=== PATIENT | female | born 1965 | race Caucasian/White ===

== ENCOUNTER 2017-04-08 18:07 | Emergency (ER) | payer SELFPAY ==
[~2017-04-08] VITALS: Ht 165.1 cm; Wt 87.4 kg
[2017-04-08] VITALS (7 sets, daily range): BP systolic 78–108; BP diastolic 50–63; PULSE 77–122; RESP 16–18; TEMP 99.8; O2SAT 94–97
[~2017-04-08 18:07] MED LIST: ADVI200T PO; ALBU8I INH; CIPR250T2 PO; PERC5TAB12 PO; TAMS0.4C67 PO; [UNRECOGNIZED DRUG - CODE] PO
[2017-04-08] MEDS ORDERED: RANI150T PO (18:34)
[2017-04-08] MEDS ORDERED: SODIUM CHLOR 0.9% 1000 ML INJ 1,000 ML IV ONE ×2 (19:30→21:30)
[2017-04-08] MEDS ORDERED: IBUPROFEN 800 MG TAB PO ONE (19:30)
[2017-04-08] MEDS ORDERED: ACETAMINOPHEN 325 MG TAB PO ONE (19:30)
--- NOTE | 2017-04-08 19:32 | PD ---
HPI . Sore throat Chief Complaint: ENT Complaint Time Seen by Provider: 19:27 Travel History International Travel<30 days: No Contact w/Intl Traveler<30days: No Traveled to known affect area: No History of Present Illness HPI This patient presents with flulike symptoms that started yesterday. She is complaining with headache, fevers and chills, sore throat and weakness. She states that she took some ibuprofen last night but has not taken anything today. No modifying factors. Symptoms have been persistent. PFSH Past Medical History Hx Anticoagulant Therapy: No COPD: Yes Diabetes: No Diminished Hearing: No GERD: Yes Immunizations Current: No Influenza Vaccination: No ?: Not Menopausal: Yes Past Surgical History Hysterectomy: Yes (TUBAL) Thoracic Surgery: Yes (right lung) Social History Alcohol Use: No Tobacco Use: No (quit in 1999) Substance Use: No Allergies-Medications (Allergen,Severity, Reaction): Coded Allergies: morphine (Unverified Allergy, Severe, VOMIT, 04/08/17) Reported Meds & Prescriptions Reported Meds & Active Scripts Active Reported Ranitidine (Ranitidine HCl) 150 Mg Tab 150 Mg PO DAILY Review of Systems Except as stated in HPI: all other systems reviewed are Neg General / Constitutional: Positive: Fever, Chills HENT: Positive: Sore Throat Gastrointestinal: Positive: Nausea, Vomiting Neurologic: Positive: Weakness Physical Exam Narrative GENERAL: Awake and alert. She acts like she feels poorly. SKIN: Warm and dry. Normal color and turgor. HEAD: Normocephalic/atraumatic. EYES: Pupils are equal. Extraocular movements are intact. ENT: Oropharynx has no erythema, tonsillar enlargement or exudate NECK: Normal range of motion. Supple. No cervical adenopathy. CARDIOVASCULAR: Sinus tachycardia. RESPIRATORY: Nonlabored respirations. Lungs are clear. MUSCULOSKELETAL: Atraumatic. NEUROLOGICAL: Nonfocal. PSYCHIATRIC: Appropriate mood and affect. Data Data Last Documented VS Vital Signs Date Time Temp Pulse Resp B/P (MAP) Pulse Ox O2 Delivery O2 Flow Rate FiO2 04/08/17 18:22 99.8 122 16 108/63 (78) 94 Orders Orders Sepsis Workup Initiated (04/08/17 ) Complete Blood Count With Diff (04/08/17 19:27) Comprehensive Metabolic Panel (04/08/17 19:27) Lactic Acid Sepsis Protocol (04/08/17 19:27) Blood Culture (04/08/17 19:27) Chest, Single Ap (04/08/17 19:) Ecg Monitoring (04/08/17:) Iv Access Insert/Monitor (04/08/17:) Oximetry (04/08/17:) Acetaminophen (Tylenol) (04/08/17 19:30) Ibuprofen (Motrin) (04/08/17 19:30) Sodium Chlor 0.9% 1000 Ml Inj (Ns 1000 M (04/08/17 19:30) Group A Rapid Strep Screen (04/08/17:) Influenzae A/B Antigen (04/08/17:) Penicillin G Benzathine Inj (Bicillin L- (04/08/17 21:00) Labs Laboratory Tests Test 04/08/17 20:10 White Blood Count 13.9 TH/MM3 Red Blood Count 4.61 MIL/MM3 Hemoglobin 12.9 GM/DL Hematocrit 39.0 % Mean Corpuscular Volume 84.6 FL Mean Corpuscular Hemoglobin 28.0 PG Mean Corpuscular Hemoglobin Concent 33.1 % Red Cell Distribution Width 13.9 % Platelet Count 174 TH/MM3 Mean Platelet Volume 8.4 FL Neutrophils (%) (Auto) 80.9 % Lymphocytes (%) (Auto) 8.5 % Monocytes (%) (Auto) 6.9 % Eosinophils (%) (Auto) 0.1 % Basophils (%) (Auto) 3.6 % Neutrophils # (Auto) 11.2 TH/MM3 Lymphocytes # (Auto) 1.2 TH/MM3 Monocytes # (Auto) 1.0 TH/MM3 Eosinophils # (Auto) 0.0 TH/MM3 Basophils # (Auto) 0.5 TH/MM3 CBC Comment DIFF FINAL Differential Comment Blood Urea Nitrogen 25 MG/DL Creatinine 1.00 MG/DL Random Glucose 108 MG/DL Total Protein 7.7 GM/DL Albumin 3.6 GM/DL Calcium Level 8.6 MG/DL Alkaline Phosphatase 78 U/L Aspartate Amino Transf (AST/SGOT) 19 U/L Alanine Aminotransferase (ALT/SGPT) 18 U/L Total Bilirubin 0.9 MG/DL Sodium Level 137 MEQ/L Potassium Level 3.5 MEQ/L Chloride Level 104 MEQ/L Carbon Dioxide Level 25.7 MEQ/L Anion Gap 7 MEQ/L Estimat Glomerular Filtration Rate 58 ML/MIN Lactic Acid Level 0.9 mmol/L MDM Medical Decision Making Medical Screen Exam Complete: Yes Emergency Medical Condition: Yes Differential Diagnosis Differential diagnosis of fever includes but is not limited to viral illness, strep throat, otitis media, pneumonia, sepsis, UTI Narrative Course This patient presents with typical flulike symptoms. She is tachycardic. I will give her fluids along with acetaminophen and ibuprofen. Septic workup including rapid flu and rapid strep screen is in progress. Last Impressions Chest X-Ray 04/08/171926 Signed Impressions: Service Date/Time: Saturday, April 08, 2017 19:52 - CONCLUSION: 1. Emphysema with lung barbara at the right lung apex. No effusion. Heart size upper limits normal. Ken Eddy MD The chest x-ray was independently viewed by me. CBC & BMP Diagram 04/08/17 20:10 Total Protein 7.7, Albumin 3.6, Calcium Level 8.6, Alkaline Phosphatase 78, Aspartate Amino Transf (AST/SGOT) 19, Alanine Aminotransferase (ALT/SGPT) 18, Total Bilirubin 0.9 LA 0.9 Flu screen negative. Strep screen positive. She will be treated with Bicillin LA 1.2 million units IM. She will then be discharged to home. Sepsis Criteria SIRS Criteria (2 or more): Heart rate over 90, WBC > 85006, < 4000 or > 10% bands Sepsis Criteria (SIRS+source): Infect source susp/known Criteria Outcome: Meets SIRS criteria, Meets sepsis criteria Diagnosis Primary Impression: Fever Qualified Codes: R50.9 - Fever, unspecified Additional Impressions: Strep throat Sepsis Qualified Codes: A40.0 - Sepsis due to Streptococcus, group A Patient Instructions: General Instructions, Strep Throat (DC) Disposition: DISCHARGE HOME Condition: Stable Yudith Gustafson MD Apr 08, 2017 19:32
--- NOTE | 2017-04-08 20:10 | RADRPT ---
EXAM DATE/TIME: 04/08/2017 19:52 [facility] COMPARISON: CHEST PA & LAT, March 20, 2013, 10:57. INDICATIONS : Cough. MEDICAL HISTORY : Gastroesophageal reflux disease. Chronic obstructive pulmonary disease SURGICAL HISTORY : Tubal ligation. Hysterectomy. ENCOUNTER: Initial ACUITY: 2 days PAIN SCORE: 2/10 LOCATION: Bilateral chest FINDINGS: There is underlying emphysema with lung barbara at the right lung apex. No consolidation or effusion. Heart size within normal limits. CONCLUSION: 1. Emphysema with lung barbara at the right lung apex. No effusion. Heart size upper limits normal. Ken Eddy MD on April 08, 2017 at 20:07 Board Certified Radiologist. This report was verified electronically.
[2017-04-08 20:27] LABS: AUTOMATED NEUTROPHIL # 11.2 TH/MM3 (1.8-7.7); BASOPHIL # 0.5 TH/MM3 (0-0.2); BASOPHIL % 3.6 % (0.0-2.0); EOSINOPHIL % 0.1 % (0.0-4.0); HEMOGLOBIN 12.9 GM/DL (11.6-15.3); LYMPH % 8.5 % (9.0-44.0); LYMPHOCYTE # 1.2 TH/MM3 (1.0-4.8); MEAN CELL VOLUME 84.6 FL (80.0-100.0); MEAN CORPUSCULAR HGB CONC 33.1 % (32.0-36.0); MEAN PLATELET VOLUME 8.4 FL (7.0-11.0); MONO % 6.9 % (0.0-8.0); NEUT % 80.9 % (16.0-70.0); PLATELET COUNT 174 TH/MM3 (150-450); RED BLOOD COUNT 4.61 MIL/MM3 (4.00-5.30); RED CELL DISTRIBUTION WIDTH 13.9 % (11.6-17.2); WHITE BLOOD COUNT 13.9 TH/MM3 (4.0-11.0)
[2017-04-08 20:37] LABS: CHLORIDE 104 MEQ/L (98-107); SODIUM (NA) 137 MEQ/L (136-145)
[2017-04-08 20:40] LABS: ALBUMIN 3.6 GM/DL (3.4-5.0); BICARBONATE 25.7 MEQ/L (21.0-32.0); BLOOD UREA NITROGEN 25 MG/DL (7-18); CALCIUM 8.6 MG/DL (8.5-10.1); GLUCOSE,RANDOM 108 MG/DL (74-106)
[2017-04-08 20:43] LABS: ALT (GPT) 18 U/L (10-53); AST (GOT) 19 U/L (15-37); GLOMERULAR FILTRATION RATE 58 ML/MIN (>89)
[2017-04-08 20:45] LABS: TOTAL BILIRUBIN ADULT 0.9 MG/DL (0.2-1.0); TOTAL PROTEIN 7.7 GM/DL (6.4-8.2)
[2017-04-08 20:46] LABS: ALKALINE PHOSPHATASE 78 U/L (45-117)
[2017-04-08] MEDS ORDERED: PENICILLIN G BENZATHINE 1,200,000 UNITS/2 ML SYRINGE IM ONE (21:00)
== END 2017-04-08 23:38 | disposition home or self-care (01) ==
LOC: PHED 18:07
DX: A40.0 Sepsis due to streptococcus, group A (principal); J02.0 Streptococcal pharyngitis; Z87.891 Personal history of nicotine dependence
CPT/HCPCS: 71045; 80053; 83605; 85025; 87040; 87804; 87880; 96360; 96361; 96372; 99284; J0561; J7030

== ENCOUNTER 2017-07-31 16:54 | Emergency (ER) | payer SELFPAY ==
[~2017-07-31] VITALS: Ht 165.1 cm; Wt 88.0 kg
[~2017-07-31 16:54] MED LIST changes: -ADVI200T PO; -ALBU8I INH; -CIPR250T2 PO; -PERC5TAB12 PO; +RANI150T PO; -TAMS0.4C67 PO; -[UNRECOGNIZED DRUG - CODE] PO
[2017-07-31 16:56] VITALS: BP 127/70; PULSE 85; RESP 16; TEMP 98.2; O2SAT 97
[2017-07-31 17:16] LABS: BILIRUBIN, URINE NEG (NEG); BLOOD, URINE LARGE (NEG); GLUCOSE,URINE NEG (NEG); KETONE, URINE NEG (NEG); NITRITE,URINE NEG (NEG); URINE COLOR YELLOW (YELLW/STRAW); URINE LEUKOCYTE ESTERASE TRACE (NEG)
[2017-07-31 17:34] LABS: RBC, URINE 100-200 /hpf (0-3)
--- NOTE | 2017-07-31 17:38 | PD ---
HPI Chief Complaint: Complaint Time Seen by Provider: 17:36 Travel History International Travel<30 days: No Contact w/Intl Traveler<30days: No Traveled to known affect area: No History of Present Illness HPI Patient comes [facility] complaining of asymptomatic hematuria that she first noticed today. Patient reports she first noticed after she voided initially and then started noticing on toilet paper when she wiped. Patient denies any vaginal discharge, abdominal pain, back pain, fevers, dysuria, or previous episodes like this. Patient denies being on a blood thinner. Denies anything making symptoms better or worse. Severity mild. PFSH Past Medical History Hx Anticoagulant Therapy: No COPD: Yes Diabetes: No Diminished Hearing: No GERD: Yes Immunizations Current: No ?: Not LMP: TL-MENOPAUSAL Menopausal: Yes Past Surgical History Hysterectomy: Yes (TUBAL) Thoracic Surgery: Yes (right lung) Social History Alcohol Use: No Tobacco Use: No (quit in 1999) Substance Use: No Allergies-Medications (Allergen,Severity, Reaction): Coded Allergies: morphine (Unverified Allergy, Severe, VOMIT, 07/31/17) Reported Meds & Prescriptions Reported Meds & Active Scripts Active Bactrim DS (Sulfamethoxazole-Trimethoprim) 800-160 Mg Tab 1 Tab PO BID Reported Ranitidine (Ranitidine HCl) 150 Mg Tab 150 Mg PO DAILY Review of Systems Except as stated in HPI: all other systems reviewed are Neg Physical Exam Narrative GENERAL: Well-developed, overly nourished, in no acute distress, and non-ill appearing. SKIN: Focused skin assessment warm and dry. HEAD: Atraumatic. Normocephalic. EYES: Pupils equal and round. EOMI. No scleral icterus. No injection or drainage. ENT: No nasal bleeding or discharge. Mucous membranes pink and moist. NECK: Trachea midline. Supple. No nuclear rigidity. RESPIRATORY: No accessory muscle use. No respiratory distress. GASTROINTESTINAL: Abdomen soft, non-tender, nondistended, and no guarding. Hepatic and splenic margins not palpable. No CVA tenderness. No pulsatile mass. MUSCULOSKELETAL: No obvious deformities. No clubbing. No cyanosis. No edema. Full range of motion. NEUROLOGICAL: Awake and alert. No obvious cranial nerve deficits. Motor grossly within normal limits. Normal speech. PSYCHIATRIC: Appropriate mood and affect; insight and judgment normal. Data Data Last Documented VS Vital Signs Date Time Temp Pulse Resp B/P (MAP) Pulse Ox O2 Delivery O2 Flow Rate FiO2 07/31/17 19:04 80 16 123/74 (90) 98 07/31/17 16:56 98.2 Orders Orders Urinalysis - C+S If Indicated (07/31/17 17:02) Urine Culture (07/31/17 17:04) Ct Abd/Pel W/O Iv Contrast (07/31/17 17:55) Ed Discharge Order (07/31/17 18:28) Mandatory Outpatient Referral (07/31/17 18:28) Labs Laboratory Tests Test 07/31/17 17:04 Urine Collection Type CLEAN CATCH Urine Color YELLOW Urine Turbidity CLOUDY Urine pH 6.0 Urine Specific [place] 1.025 Urine Protein TRACE mg/dL Urine Glucose (UA) NEG mg/dL Urine Ketones NEG mg/dL Urine Occult Blood LARGE Urine Nitrite NEG Urine Bilirubin NEG Urine Urobilinogen 0.2 MG/DL Urine Leukocyte Esterase TRACE Urine RBC 100-200 /hpf Urine WBC 20-24 /hpf Urine Squamous Epithelial Cells 6-8 /hpf Microscopic Urinalysis Comment CULTURE INDICATED MDM Medical Decision Making Medical Screen Exam Complete: Yes Emergency Medical Condition: Yes Interpretation(s) Last Impressions Abdomen/Pelvis CT 07/31/17 1755 Signed Impressions: CONCLUSION: 1. Tiny 1 to 2 mm calculi in the upper and lower pole of the right kidney. No hydronephrosis or obstructive uropathy. No left renal calculi or bladder calcul i. No acute findings. Findings similar to September 2015. Differential Diagnosis UTI, renal calculi, asymptomatic hematuria, mass Narrative Course Patient with asymptomatic hematuria. No obvious evidence of infection. This finding was discussed with the patient and the patient was instructed to follow up with Urology to recheck urine and rule out etiologies such as cancer. Mandatory referral was placed. Patient agreed with plan. Patient in no obvious distress upon re-evaluation. All pertinent laboratory/ Radiology result(s) discussed with patient. Patient was asked if they wanted to speak to my attending, which the patient did not wish to do at this time. Any questions/concerns in reference to patient diagnosis/condition discussed and clarified prior to patient's discharge. Reinforced sheer importance of close follow up with patient's primary physician or primary care clinic and urologist. Instructed patient to return to ED immediately, if symptoms return/ worsen. Patient showed understanding of above instructions. Further instructions and recommendations were detailed in discharge paperwork. Patient ambulated without difficulty out of ED at discharge. Diagnosis Primary Impression: Hematuria Qualified Codes: R31.9 - Hematuria, unspecified Referrals: Tomas Fernandez MD [facility] [address] Patient Instructions: General Instructions, Hematuria (ED) Additional Instructions: Follow-up with your primary care physician and/or urologist for further evaluation of your asymptomatic hematuria. Take all medication as prescribed. Return to the emergency department if symptoms get worse. Med/Other Pt SpecificInfo: Prescription(s) given Scripts Sulfamethoxazole-Trimethoprim (Bactrim DS) 800-160 Mg Tab 1 TAB PO BID for Infection, #20 TAB 0 Refills Prov: Graciela Hill MD 07/31/17 Disposition: 01 DISCHARGE HOME Condition: Stable Vahe Farias Jul 31, 2017 17:38
--- NOTE | 2017-07-31 18:22 | RADRPT ---
EXAM DATE: 07/31/2017 6:14 PM EDT AGE/SEX: 52 years / Female INDICATIONS: Hematuria. CLINICAL DATA: This is the patient's initial encounter. Patient reports that signs and symptoms have been present for 1 day and indicates a pain score of 0/10. MEDICAL/SURGICAL HISTORY: Chronic obstructive pulmonary disease. Gastroesophageal reflux disea se. Tubal ligation. Right lung surgery for collapsed lung. RADIATION DOSE: 12.88 CTDI (mGy) COMPARISON: [facility], CT ABDOMEN & PELVIS W/O CONTRAST, 10/06/2015. . TECHNIQUE: Multiple contiguous axial images were obtained through the abdomen. Images were obtained using multiple row detector helical technique. Using dose reduction techniques, radiation dose was ke pt as low as reasonably achievable to obtain optimal diagnostic quality images. FINDINGS: No acute findings in the visualized liver, spleen, adrenals, left kidney or pancreas. There are four tiny calculi in the right kidney. No bladder calculi. No hydronephrosis or evidence for obstructive u ropathy. No acute bony abnormality. CONCLUSION: 1. Tiny 1 to 2 mm calculi in the upper and lower pole of the right kidney. No hydronephrosis or obst ructive uropathy. No left renal calculi or bladder calculi. No acute findings. Findings similar to Monika cruz 2016. Electronically signed by: Ken Eddy MD 07/31/2017 6:21 PM EDT
[2017-07-31] MEDS ORDERED: BACT800T5 PO (18:27)
[2017-07-31 19:04] VITALS: BP 123/74
== END 2017-07-31 19:05 | disposition home or self-care (01) ==
LOC: PHEFT 16:54
DX: R31.9 Hematuria, unspecified (principal); N20.0 Calculus of kidney; J44.9 Chronic obstructive pulmonary disease, unspecified; K21.9 Gastro-esophageal reflux disease without esophagitis; Z88.5 Allergy status to narcotic agent; Z79.899 Other long term (current) drug therapy
CPT/HCPCS: 74176; 81001; 87086